=== PATIENT | male | born 1960 | race Two or more races ===

== ENCOUNTER 2017-03-17 16:46 | Emergency (ER) | payer MEDICAID ==
[~2017-03-17] VITALS: Ht 165.1 cm; Wt 77.1 kg
[~2017-03-17 16:46] MED LIST: NKM
--- NOTE | 2017-03-17 17:26 | Emergency Room Report ---
History of Present Illness General Chief Complaint: Male Urogenital Problems Present Illness HPI 56-year-old male presents to the emergency department complaining of nocturia times one week. Patient denies fevers, chills, dysuria, hematuria, cloudy urine , penile discharge, abdominal pain, rectal pain. Patient denies history of BPH. Denies polydipsia or DM. He denies night sweats or significant changes in weight. he denies familial history of cancer. Denies history of STDs. Denies recent anal intercourse. Denies CP, Palpitations, LOC, AMS, dizziness, Changes in Vision, Sensation, paresthesias, or a sudden severe headache. Allergies: Coded Allergies: No Known Allergies (Unverified , 05/17/14) Patient History Past Medical History: see triage record Past Surgical History: none Pertinent Family History: none Reviewed Nursing Documentation: PMH: Agreed, PSxH: Agreed Nursing Documentation-PMH Hx Cardiac Problems: No Hx Hypertension: Yes Hx Cancer: No Hx Gastrointestinal Problems: No Hx Neurological Problems: No Review of Systems All Other Systems: negative except mentioned in HPI Physical Exam Vital Signs Date Time Temp Pulse Resp B/P (MAP) Pulse Ox O2 Delivery O2 Flow Rate FiO2 03/17/17 16:51 98.1 69 18 127/74 97 Room Air Sp02 EP Interpretation: reviewed, normal General Appearance: no apparent distress, alert, GCS 15, non-toxic Head: normocephalic, atraumatic Eyes: bilateral eye normal inspection, bilateral eye PERRL ENT: hearing grossly normal, normal voice Neck: full range of motion Respiratory: lungs clear, normal breath sounds, speaking full sentences Cardiovascular #1: regular rate, rhythm Gastrointestinal: normal bowel sounds, non tender, soft, no guarding, no rebound Rectal: deferred Genitourinary: normal inspection, no CVA tenderness Musculoskeletal: back normal, gait/station normal, normal range of motion, non- tender Neurologic: alert, oriented x3, responsive, motor strength/tone normal, sensory intact, normal gait, speech normal Psychiatric: judgement/insight normal, memory normal, mood/affect normal Skin: normal color, no rash, warm/dry, well hydrated Lymphatic: no adenopathy Medical Decision Making PA Attestation Dr. Arreola is my supervising Physician whom patient management has been discussed with. Diagnostic Impression: Primary Impression: Nocturia ER Course 56-year-old male presents to the emergency department complaining of nocturia times one week. Patient denies fevers, chills, dysuria, hematuria, cloudy urine , penile discharge, abdominal pain, rectal pain. Patient denies history of BPH. Denies polydipsia or DM. He denies night sweats or significant changes in weight. he denies familial history of cancer. Denies history of STDs. Denies recent anal intercourse. Denies CP, Palpitations, LOC, AMS, dizziness, Changes in Vision, Sensation, paresthesias, or a sudden severe headache. Ddx considered but are not limited to BPH, cancer, UTI, STD, Prostatitis, rectal Mass, DM just to name a few Vital signs: are WNL, pt. is afebrile H&PE are most consistent with possible BPH no indications to suggest infection ORDERS: -UA: WNl/ Unremarkable ED INTERVENTIONS: None required at this time. Pt. was given Urology referral. I do not suspect an emergent condition at this time. with current presentation pt. is stable for close outpatient follow up. D/w pt. to return to ED with worsening or new symptoms. DISCHARGE: At this time pt. is stable for d/c to home. Will provide printed patient care instructions, and any necessary prescriptions. Care plan and follow up instructions have been discussed with the patient prior to discharge. Labs Test 03/17/17 17:10 Urine Color Yellow Urine Appearance Clear Urine pH 5 (4.5-8.0) Urine Specific [place] 1.025 (1.005-1.035) Urine Protein Negative (NEGATIVE) Urine Glucose (UA) Negative (NEGATIVE) Urine Ketones Negative (NEGATIVE) Urine Occult Blood Negative (NEGATIVE) Urine Nitrite Negative (NEGATIVE) Urine Bilirubin Negative (NEGATIVE) Urine Urobilinogen Normal MG/DL (0.0-1.0) Urine Leukocyte Esterase Negative (NEGATIVE) Last Vital Signs Date Time Temp Pulse Resp B/P (MAP) Pulse Ox O2 Delivery O2 Flow Rate FiO2 03/17/17 16:51 98.1 69 18 127/74 97 Room Air Disposition: HOME, SELF-CARE Condition: Stable Patient Instructions: Urinary Frequency Additional Instructions: Take any previously prescribed medications as directed. Follow up with a UROLOGY SPECIALIST in 3-5 days, even if your symptoms have resolved. --Please review attached UROLOGY REFERRAL , as this accepts your insurance. Return sooner to ED if new symptoms occur, or current symptoms become worse. - Please note that this Emergency Department Report was dictated using [employer] operator technology software, occasionally this can lead to erroneous entry secondary to interpretation by the dictation equipment. Brittany Beltran Mar 17, 2017 17:26
[2017-03-17 17:36] LABS: APPEARANCE,URINE CLEAR; KETONES,URINE NEGATIVE (NEGATIVE); LEUKOCYTE ESTERASE ,URINE NEGATIVE (NEGATIVE); NITRITE,URINE NEGATIVE (NEGATIVE); PH,URINE 5 (4.5-8.0); PROTEIN,URINE NEGATIVE (NEGATIVE); UROBILINOGEN,URINE NORMAL MG/DL (0.0-1.0)
[2017-03-17 18:30] VITALS: BP 127/74
== END 2017-03-17 18:32 | disposition home or self-care (01) ==
LOC: EMR 17:30
DX: R35.1 Nocturia (principal); Z86.79 Personal history of other diseases of the circulatory system; I10 Essential (primary) hypertension
CPT/HCPCS: 81003; 99283